=== PATIENT | female | born 1985 | race Caucasian/White ===

== ENCOUNTER 2016-10-12 12:27 | Emergency (ER) | payer OTHER ==
[~2016-10-12 12:27] MED LIST: CIPRO500 MG PO; FLAGYL500 MG PO; NORCO 10-325 T1 EACH PO
== END 2016-10-12 13:56 | disposition home or self-care (01) ==
LOC: ER1 12:27
DX: N39.0 Urinary tract infection, site not specified (principal)
CPT/HCPCS: 81001; 84703; 87077; 87086; 87186; 99283

== ENCOUNTER 2016-11-12 15:54 | Emergency (ER) | payer OTHER ==
[2016-11-12 17:27] LABS: BUN/CREATININE RATIO 14 (0-10)
[2016-11-12 18:48] LABS: HEMOGLOBIN 13.7 gm/dl (12.3-15.3); RED BLOOD COUNT 4.82 M/UL (4.00-5.10); WHITE BLOOD COUNT 9.5 K/UL (4.5-11.0)
== END 2016-11-12 20:45 | disposition home or self-care (01) ==
LOC: ER1 15:54
PROVIDERS: Emergency Medicine
DX: R31.9 Hematuria, unspecified (principal); E16.2 Hypoglycemia, unspecified; F17.200 Nicotine dependence, unspecified, uncomplicated
CPT/HCPCS: 80053; 81001; 84703; 85025; 87210; 99285; J7030; J7050; Q9962